=== PATIENT | male | born 1955 | race Caucasian/White ===

== ENCOUNTER 2023-11-23 14:05 | Emergency (ER) | payer MEDICARE, MEDICAID, SELFPAY ==
[2023-11-23 14:15] VITALS: BP 134/75; PULSE 68; RESP 20; TEMP 36.4; O2SAT 97; BMI 31.0
--- NOTE | 2023-11-23 14:44 | ED.EAR1 ---
HPI - Ear Problem General Chief complaint: Ear Stated complaint: L EAR PAIN Time Seen by Provider: 11/23/23 14:34 Source: patient Mode of arrival: walk-in Limitations: no limitations History of Present Illness HPI Narrative: Patient is a 68-year-old male who presents to the ER for the evaluation of decreased hearing to the left ear for the last several days. He denies pain, drainage. He has no significant upper respiratory symptoms. No medications taken prior to arrival. Related Data Allergies Allergy/AdvReac Type Severity Reaction Status Date / Time No Known Drug Allergies Allergy Verified 11/23/23 14:18 Review of Systems ROS Constitutional Denies: fever or chills Ears, nose, mouth, and throat Reports: change in hearing; Denies: throat pain, ear pain, ear discharge or nasal congestion Cardiovascular Denies: chest pain Respiratory Denies: shortness of breath or cough Gastrointestinal Denies: nausea or vomiting Integumentary/Breast Denies: rash Neurological Denies: headache Hematologic/Lymphatic Denies: easy bruising or easy bleeding PFSH PFSH Social History Smoking status: Never smoker Exam Narrative Exam Narrative: Gen.: Awake, alert, in no distress Head: Normocephalic, atraumatic ENT: Moist mucous membranes, Left TM is obscured by dark wax, right TM is clear; No bleeding or Respiratory: No respiratory distress Extremities: Moves extremities equally Psych: Normal mood and affect Neuro: No focal neuro deficit Skin: Warm, dry, intact Constitutional Vital Signs, click to edit/add: Last Vital Signs Temp 97.5 F L 11/23/23 14:15 Pulse 68 11/23/23 14:15 Resp 20 11/23/23 14:15 BP 134/75 11/23/23 14:15 Pulse Ox 97 11/23/23 14:15 O2 Del Method Nasal Cannula 11/23/23 14:15 Course Vital Signs Vital signs: Vital Signs Temperature 97.5 F L 11/23/23 14:15 Pulse Rate 68 11/23/23 14:15 Respiratory Rate 20 11/23/23 14:15 Blood Pressure 134/75 11/23/23 14:15 Pulse Oximetry 97 11/23/23 14:15 Oxygen Delivery Method Nasal Cannula 11/23/23 14:15 Temperature 97.5 F L 11/23/23 14:15 Pulse Rate 68 11/23/23 14:15 Respiratory Rate 20 11/23/23 14:15 Blood Pressure 134/75 11/23/23 14:15 Pulse Oximetry 97 11/23/23 14:15 Oxygen Delivery Method Nasal Cannula 11/23/23 14:15 Medical Decision Making MDM Narrative Medical decision making narrative: Patient treated for cerumen impaction with Debrox and Cortisporin eardrops for home. Follow-up with PCP and return to the ER if symptoms change or worsen Medical Records Medical records reviewed: Yes I reviewed the patient's medical records Discharge Plan Discharge Chief Complaint: Ear Clinical Impression: Impacted cerumen of left ear Patient Disposition: Home, Self-Care Time of Disposition Decision: 14:43 Condition: Good Instructions: Carbamide Peroxide (Into the ear) Stand Alone Forms: Portal Instructions Referrals: Physician,Non-Staff, MD [Primary Care Provider] - 1 week
[2023-11-23] MEDS: NEOMYCIN/POLYMYXIN B/HYDROCORTISONE OTIC SOLUTION 200 DROP/10 ML BOTTLE OT (14:56)
[2023-11-23] MEDS: CARBAMIDE PEROXIDE 6.5% EAR DROPS 300 DROP/15 ML BOTTLE 10 DROP OT (14:56)
== END 2023-11-23 14:58 | disposition home or self-care (01) ==
PROVIDERS: Emergency Provider Emergency Medicine
DX: H61.22 Impacted cerumen, left ear (principal)
CPT/HCPCS: 99283